=== PATIENT | male | born 1985 | race Caucasian/White ===

== ENCOUNTER 2016-05-29 14:54 | Emergency (ER) | payer OTHER ==
[~2016-05-29] VITALS: Ht 188 cm; Wt 75.3 kg
[~2016-05-29 14:54] MED LIST: AMOX-358 PO; NAPR550T PO; NO HOME MEDS; PENI500T PO
--- NOTE | 2016-05-29 16:28 | NUR ---
rounds made, pt denies needs.
[2016-05-29] MEDS ORDERED: CEPHALEXIN 500 MG (KEFLEX) CAPSULE PO ONE (17:45)
[2016-05-29] MEDS ORDERED: CEPH-331 PO (17:48)
[2016-05-29 18:01] VITALS: BP 135/96
== END 2016-05-29 17:45 | disposition home or self-care (01) ==
LOC: ED 14:55
DX: L03.211 Cellulitis of face (principal)
CPT/HCPCS: 99282; 99283